=== PATIENT | female | born 1965 | race Caucasian/White ===

== ENCOUNTER 2019-10-11 14:40 | Day surgery (SDC) | payer OTHER ==
[2019-10-10 14:08] VITALS: BMI 23.7
[2019-10-11] MEDS ORDERED: PROPOFOL 20 ML ONE ×2 (16:02)
[2019-10-11] MEDS ORDERED: MIDAZOLAM HCL 2 MG/2 ML SINGLE DOSE VIAL ONE (16:02)
[2019-10-11] MEDS ORDERED: BUPIVACAINE HCL/PF 0.25% (2.5MG/ML) 10 ML VIAL ONE (17:12)
[2019-10-11] MEDS ORDERED: EPHEDRINE SULFATE/0.9% NACL/PF 50 MG/10 ML SYRINGE NR ONE (17:18)
[2019-10-11] MEDS ORDERED: KETOROLAC TROMETHAMINE 30 MG/1 ML VIAL ONE (17:43)
[2019-10-11] MEDS ORDERED: DEXAMETHASONE SOD PHOSPHATE 4 MG/1 ML VIAL ONE (17:43)
[2019-10-11] MEDS ORDERED: ONDANSETRON 4 MG/2 ML VIAL ONE ×2 (17:43→18:24)
[2019-10-11] MEDS ORDERED: ceFAZolin SODIUM 1 GM VIAL ONE (17:43)
[2019-10-11] MEDS ORDERED: BUPIVACAINE HCL/PF 0.25% (2.5MG/ML) 10 ML VIAL IJ ONE (18:04)
[2019-10-11] MEDS ORDERED: ONDANSETRON 4 MG/2 ML VIAL IVPUSH PRN (18:20)
[2019-10-11] MEDS ORDERED: oxyCODONE HCL 5 MG TABLET PO PRN ×2 (18:20)
[2019-10-11] MEDS ORDERED: PROMETHAZINE HCL 25 MG/1 ML VIAL IVPUSH PRN (18:20)
[2019-10-11 19:45] VITALS: BP 131/76; PULSE 66; TEMP 97.7
--- NOTE | 2019-10-11 20:20 | OP ---
DATE OF OPERATION: 10/11/2019 PREOPERATIVE DIAGNOSIS: Left thumb ulnar collateral ligament complete tear. POSTOPERATIVE DIAGNOSIS: Left thumb ulnar collateral ligament complete tear. OPERATIVE PROCEDURE: Left thumb ulnar collateral ligament repair with InternalBrace augmentation. SURGEON: Vlad Braga MD DISH ROOM WORKER: WERO Luis ANESTHESIA: General. COMPLICATIONS: None. ESTIMATED BLOOD LOSS: Minimal. INDICATIONS FOR PROCEDURE: The patient is a 53-year-old female with the above finding indicated for operative treatment. The risks, benefits and alternatives were discussed with the patient at length and proper informed consent was obtained. DESCRIPTION OF PROCEDURE: After proper identification of the patient and correct operative site, the patient was brought to the operating room, placed supine on the operating table and bony prominences well padded. General anesthesia was given. Intravenous antibiotic was given. Timeout procedure was performed. The left upper extremity was prepped and draped in the usual sterile fashion. A well-padded tourniquet was placed with a sterile prep. Esmarch bandage was used to exsanguinate the left upper extremity. Tourniquet was inflated to 250 mmHg. Examination under anesthesia confirmed gross instability of the metacarpophalangeal joint at the ulnar collateral ligament. A curvilinear incision was made over the ulnar aspect of the joint. Incision was taken sharply through the skin with blunt and sharp dissection of the subcutaneous tissues, carefully protecting sensory nerves in the area. Adductor aponeurosis was divided and a complete tear of the ulnar collateral ligament, except for a very small band of the accessory collateral ligament, was ruptured in its midsubstance. The attachments on the proximal phalanx and the metacarpal neck did remain intact. Some element of dorsal capsule was also torn. At this point, the ligament was repaired in a [id number] fashion using 3-0 FiberWire suture. The repair was then augmented with an InternalBrace using 2 Arthrex 3.5-mm SwiveLock anchors and SutureTape. This provided very secure fixation. Full range of motion was achieved. No instability was present. Adductor aponeurosis was repaired using 4-0 Vicryl suture. The skin was repaired in layers using 4-0 Vicryl and 4-0 Monocryl. Full range of motion of the thumb IP joint was achieved still, as was the MP joint, with good stability maintained. Steri-Strips, sterile dressings and splint were placed. The patient was reversed from anesthesia and brought to the recovery room in stable condition. She tolerated the procedure well. WERO Luis, the certified surgical tech/first assistant, was present throughout this procedure. The procedure could not have been performed without a skilled operative certified surgical tech/first assistant. BERKLEY BRAGA M.D. [place]/[id number]
== END 2019-10-11 19:46 | disposition home or self-care (01) ==
LOC: FASU 14:40
PROVIDERS: ATTEND Orthopaedic Surgery Hand Surgery
PROC: 0MQ80ZZ Repair Left Hand Bursa and Ligament, Open Approach (ICD-10-PCS; principal; 2019-10-11 17:11)
DX: S63.642A Sprain of metacarpophalangeal joint of left thumb, initial encounter (principal); X58.XXXA Exposure to other specified factors, initial encounter; Y93.9 Activity, unspecified; Y92.9 Unspecified place or not applicable
CPT/HCPCS: 84703; 94760

== ENCOUNTER 2020-06-09 11:08 | Emergency (ER) | payer OTHER ==
[2020-06-09 11:37] VITALS: BP 148/82; PULSE 64; TEMP 98.6; BMI 24.1
== END 2020-06-09 12:51 | disposition home or self-care (01) ==
LOC: FER 11:08
DX: S60.444A External constriction of right ring finger, initial encounter (principal)
CPT/HCPCS: 99283-25